=== PATIENT | male | born 1945 ===

== ENCOUNTER 2019-01-29 09:48 | Outpatient (CLI) | payer OTHER ==
[~2019-01-29] VITALS: Ht 152.4 cm; Wt 90.7 kg
== END 2019-01-29 10:10 | disposition home or self-care (01) ==
LOC: OFIC 805 09:48
DX: H90.A32 Mixed conductive and sensorineural hearing loss, unilateral, left ear with restricted hearing on the contralateral side (principal); H90.A21 Sensorineural hearing loss, unilateral, right ear, with restricted hearing on the contralateral side; H93.12 Tinnitus, left ear

== ENCOUNTER 2019-03-19 09:37 | Outpatient (CLI) | payer OTHER ==
[~2019-03-19] VITALS: Ht 152.4 cm; Wt 90.7 kg
== END 2019-03-19 09:50 | disposition home or self-care (01) ==
LOC: OFIC 805 09:37
DX: H90.A32 Mixed conductive and sensorineural hearing loss, unilateral, left ear with restricted hearing on the contralateral side (principal); H90.41 Sensorineural hearing loss, unilateral, right ear, with unrestricted hearing on the contralateral side; H93.12 Tinnitus, left ear